=== PATIENT | male | born 1955 | race African-American/Black ===

== ENCOUNTER 2019-03-16 08:36 | Outpatient (CLI) | payer BC ==
--- NOTE | 2019-03-16 09:34 | ULT ---
SCROTAL ULTRASOUND INDICATION: Right testicular pain TECHNIQUE: Grayscale, color Doppler spectral Doppler images were obtained of the scrotum. COMPARISON: None. FINDINGS: Right Testicle: Size: 2.2 x 2.7 x 3.4 cm. Flow: Increased vascular flow Hydrocele: Complex moderate right-sided hydrocele Epididymis: Increased vascular flow to the right epididymis. There is a 5 mm right epididymal head c yst. Left Testicle: Size: 2.1 x 2.1 x 3.6 cm. Flow: There is normal vascular flow to left testicle. Hydrocele: Small left hydrocele Epididymis: 6 mm left epididymal head cyst. Additional findings: None. Impression: 1. Findings suspicious for right-sided epididymal orchitis with a moderate-sized mildly complex right hydrocele. No intratesticular mass is evident. 2. Bilateral epididymal head cysts.
== END 2019-03-16 08:37 | disposition home or self-care (01) ==
LOC: BICULT 08:36
PROVIDERS: ATTEND Family Medicine
DX: N50.819 Testicular pain, unspecified (principal); N43.3 Hydrocele, unspecified; N50.3 Cyst of epididymis
CPT/HCPCS: 76870; 93976